=== PATIENT | female | born 1945 | race Two or more races ===

== ENCOUNTER 2024-09-07 20:58 | Emergency (ER) | payer OTHER ==
[2024-09-07 21:15] VITALS: BP 134/98; PULSE 88; RESP 17; TEMP 98.1; BMI 28.3
== END 2024-09-08 00:44 | disposition home or self-care (01) ==
LOC: JER 20:58
DX: M19.011 Primary osteoarthritis, right shoulder (principal); M25.511 Pain in right shoulder; G89.29 Other chronic pain; M79.18 Myalgia, other site
CPT/HCPCS: 73030-TC-RT-FY; 73060-TC-RT-FY; 73200-TC-RT; 99284-25